=== PATIENT | female | born 1965 | race Caucasian/White ===

== ENCOUNTER → 2017-09-20 | Outpatient (CLI) | payer OTHER | LOC: BMCIMAGING 08:23 | PROVIDERS: ATTEND Family Medicine | DX: Z12.31 Encounter for screening mammogram for malignant neoplasm of breast (principal) ==

== ENCOUNTER → 2017-10-19 | Outpatient (CLI) | payer OTHER | LOC: BMCIMAGING 17:43 | PROVIDERS: ATTEND Emergency Medicine | DX: R05 Cough (principal) ==

== ENCOUNTER → 2018-11-14 | Outpatient (CLI) | payer OTHER | LOC: BMCIMAGING 07:10 | PROVIDERS: ATTEND Family Medicine | DX: Z12.31 Encounter for screening mammogram for malignant neoplasm of breast (principal) ==